=== PATIENT | female | born 1975 | race Caucasian/White ===

== ENCOUNTER 2017-03-16 09:37 | Day surgery (SDC) | payer SELFPAY ==
[2017-03-13 12:13] VITALS: BMI 25.8
[2017-03-16 10:24] VITALS: RESP 18
[2017-03-16 12:18] VITALS: BP 110/75; PULSE 75; TEMP 97.6; O2SAT 100
--- NOTE | 2017-03-16 12:18 | PCM.SURG1 ---
Surgeon's Initial Post Op Note - Surgeon's Notes Surgeon: Colby Malave MD Housekeeping Director: NONE Type of Anesthesia: Local Pre-Operative Diagnosis: Left thyroid nodule Operative Findings: US showed a vascular left thyroid nodule that measures 2 cm and is partially calcified. Post-Operative Diagnosis: Left thyroid nodule Operation Performed: US guided FNA Specimen/Specimens Removed: 25 g FNA x 4 Estimated Blood Loss: EBL {In ML}: 1 Blood Products Given: N/A Drains Used: No Drains Post-Op Condition: Good Date of Surgery/Procedure: 03/16/17 Time of Surgery/Procedure: 12:00
--- NOTE | 2017-03-16 12:19 | CP.SDSHP ---
Same Day Surgery H & P - History Proposed Procedure: US guided FNA left thyroid nodule Pre-Op Diagnosis: Left thyroid nodule - Allergies Allergies: Allergies No Known Allergies Allergy (Verified 03/13/17 12:13) - Physical Exam Vital Signs: Vital Signs 03/16/17 09:55 Temperature 98.6 F Pulse Rate 88 Respiratory 18 Rate Blood Pressure 105/71 O2 Sat by Pulse 98 Oximetry Mental Status: Alert & Oriented x3 Neuro: WNL Heart: WNL - Impression Impression: Pt referred for FNA of left thyroid nodule. US showed a vascular left thyroid nodule that measures 2 cm and is partially calcified. Plan US guided FNA. Pt. Evaluated Today:Candidate for Anesthesia & Procedure: No - Date & Time Date: 03/16/17 Time: 11:35 Short Stay Discharge - Short Stay Discharge Admitting Diagnosis/Reason for Visit: NONTOXIC GOITER, UNSPECIFIED Disposition: HOME/ ROUTINE
--- NOTE | 2017-03-16 14:05 | US ---
PROCEDURE: Date of Procedure: 03/16/2017 PROCEDURE: 1. Ultrasound guided FNA of left thyroid nodule, CPT 97521 2. Ultrasound guidance for FNA, 48300 Medications: 4 cc 1% Lidocaine HISTORY: Enlarged left thyroid nodule. TECHNIQUE: Following informed consent and procedure time-out, a limited ultrasound patient's neck confirmed the presence of a 2 cm complex left thyroid nodule which is predominantly solid. After the patient's neck was prepped and draped in the usual sterile fashion, the skin was anesthetized with 1% lidocaine. Ultrasound-guided fine needle aspiration was then performed of the dominant left thyroid nodule. A total of 4 passes were made into the nodule with 25 gauge needle under ultrasound guidance. The FNA specimen was sent for routine pathology. Post biopsy ultrasound showed no hematoma. IMPRESSION: Ultrasound-guided FNA of the dominant left thyroid nodule.
== END 2017-03-16 12:15 | disposition home or self-care (01) ==
LOC: C.SPRAD 09:37
PROVIDERS: ATTEND Radiology Vascular & Interventional Radiology
DX: E04.1 Nontoxic single thyroid nodule (principal)

== ENCOUNTER 2017-03-26 11:51 | Emergency (ER) | payer SELFPAY ==
[2017-03-26 11:52] VITALS: BMI 25.8
[2017-03-26 12:03] VITALS: BP 115/78; RESP 18
[2017-03-26] MEDS ORDERED: Amoxicillin-Clav 875-125 mg Tab PO STA (12:52)
--- NOTE | 2017-03-26 12:54 | C.PDOC ---
History Of Present Illness 41 yr old female presents to the ER for evaluation of bilateral earring "stuck in my ear" for the past 1 week. Patient states she has been unable to remove it. Patient states yesterday she noticed right ear lobe swelling and redness, right>left. Patient denies fever, chills, neck pain or headache. Time Seen by Provider: 03/26/17 12:06 Chief Complaint (Nursing): ENT Problem History Per: Patient History/Exam Limitations: None Onset/Duration Of Symptoms: Days (1 week ) Past Medical History Reviewed: Historical Data, Nursing Documentation, Vital Signs Vital Signs: Last Vital Signs Temp 98.8 F 03/26/17 13:04 Pulse 80 03/26/17 13:04 Resp 18 03/26/17 13:04 BP 115/78 03/26/17 13:04 Pulse Ox 100 03/26/17 13:04 - Medical History PMH: Hypothyroidism - [facility] Procedures INJECT/INFUSE NEC (04/12/13) Family History: States: No Known Family Hx - Social History Hx Alcohol Use: Yes Hx Substance Use: No - Immunization History Hx Tetanus Toxoid Vaccination: No Hx Influenza Vaccination: No Hx Pneumococcal Vaccination: No Review Of Systems Except As Marked, All Systems Reviewed And Found Negative. Constitutional: Negative for: Fever, Chills ENT: Positive for: Other ((+) Right ear lobe swelling and redness. ) Musculoskeletal: Negative for: Neck Pain Neurological: Negative for: Headache Physical Exam - Physical Exam Appears: Well, Non-toxic, No Acute Distress Skin: Warm, Dry, No Rash Head: Normacephalic Eye(s): bilateral: PERRL Ear(s): Bilateral: Normal, Other (B/L earrings noted. 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 Left earring closure visualized, no edema or erythema over left ear lobe.) Nose: No Discharge Oral Mucosa: Moist, No Drooling Throat: Normal, No Erythema, No Exudate, No Drooling Neck: Supple Lymphatic: No Adenopathy (cervical) Neurological/Psych: Oriented x3, Normal Speech, Normal Motor ED Course And Treatment O2 Sat by Pulse Oximetry: 97 Pulse Ox Interpretation: Normal Progress Note: On re-evaluation, pt is afebrile, hemodynamicaly stable. NOn- toxic. ENT: B/l earrings removed. Abx given. Pt advised on course of ds. ref. to f/u with PMD , ENT in 2-3 days for re-eavl. return to ED if any worsening or new changes. - Incision & Drainage Of Abscess Anesthesia: Lidocaine 2% (local to Right earlobe) Prep Used: Betadine Procedure: Incised W/Scalpel Blade#: (11 and earing back closure removed. ) Medical Decision Making Medical Decision Making: PLAN: * Augmentin PO Disposition Counseled Patient/Family Regarding: Diagnosis, Need For Followup, Rx Given - Disposition Referrals: Abran Cali MD [Staff Provider] - Disposition: HOME/ ROUTINE Disposition Time: 12:10 Condition: STABLE Additional Instructions: Apply antibacterial cream topically to wound daily take medication as prescribed Follow up with PMD, ENT in 2-3 days for re-evaluation as need return to ED if any worsening or new changes. Prescriptions: Amoxicillin/Clavulanate [Augmentin 875 MG-125 MG] 1 tab PO BID #14 tab Bacitracin OINT 1 applic TP DAILY #1 tube Instructions: Soft Tissue Foreign Body (ED) - Clinical Impression Clinical Impression: Foreign body - PA / INDUSTRIAL CLEANING TECHNICIAN / Resident Statement MD/DO has reviewed & agrees with the documentation as recorded. - Scribe Statement The provider has reviewed the documentation as recorded by the Scribe Cinthya Swain All medical record entries made by the Scribe were at my direction and personally dictated by me. I have reviewed the chart and agree that the record accurately reflects my personal performance of the history, physical exam, medical decision making, and the department course for this patient. I have also personally directed, reviewed, and agree with the discharge instructions and disposition.
[2017-03-26] MEDS ORDERED: Amoxicillin-Clav 875-125 mg Tab PO ONE (12:59)
[2017-03-26 13:05] VITALS: PULSE 80; TEMP 98.8
[2017-03-26 22:44] VITALS: O2SAT 97
== END 2017-03-26 13:04 | disposition home or self-care (01) ==
LOC: C.ER 11:51
DX: M79.5 Residual foreign body in soft tissue (principal)